=== PATIENT | female | born 1955 ===

== ENCOUNTER 2020-06-09 02:18 | Outpatient (CLI) | payer MEDICARE, OTHER, SELFPAY ==
[2020-06-09 13:07] LABS: COVID-19 PCR Negative (Negative)
== END 2020-06-09 02:19 | disposition home or self-care (01) ==
LOC: LBO 02:19
PROVIDERS: Visit Provider Orthopaedic Surgery
DX: Z20.822 Contact with and (suspected) exposure to COVID-19 (principal); Z01.818 Encounter for other preprocedural examination
CPT/HCPCS: 87635